=== PATIENT | male | born 1950 | race Caucasian/White ===

== ENCOUNTER 2017-04-23 18:17 | Observation (INO) | payer OTHER ==
[2017-04-23] MEDS ORDERED: Metoprolol Tartrate TAB* 25 MG PO ONE (18:40)
[2017-04-23] MEDS ORDERED: Metoprolol Tartrate IV* 1 MG/ML 5 ML VIAL IV ONE (18:40)
[2017-04-23] MEDS: NS 0.9% 1000 ML* 2,000 ML IV ONE (18:52)
[2017-04-23 19:03] LABS: Hematocrit 41 % (42-52); Hemoglobin 14.2 g/dl (14.0-18.0); Mean Corpuscular HGB Conc 35 g/dl (31-36); Mean Corpuscular Hemoglobin 31 pg (27-31); Mean Corpuscular Volume 91 fL (80-94); Mean Platelet Volume 7 um3 (7.4-10.4); Red Blood Count 4.53 10^6/ul (4.0-5.4); Red Cell Distribution Width 13 % (10.5-15); White Blood Count 6.2 10^3/ul (3.5-10.8)
[2017-04-23 19:09] LABS: Urine Bacteria Absent (Absent); Urine Bilirubin Negative (Negative); Urine Glucose Negative (Negative); Urine Nitrite Negative (Negative)
--- NOTE | 2017-04-23 19:25 | RAD ---
HISTORY: Tachycardia COMPARISONS: June 13, 2016 VIEWS:1: Single frontal portable view of the chest at 7:05 PM FINDINGS: LINES AND TUBES: None. CARDIOMEDIASTINAL SILHOUETTE: The cardiomediastinal silhouette is normal for portable technique. PLEURA: The costophrenic angles are sharp. No pleural abnormalities are noted. LUNG PARENCHYMA: There is hyperinflation. There is minimal patchy alveolar opacification of the left lung base ABDOMEN: The upper abdomen is clear. There is no subphrenic gas. BONES AND SOFT TISSUES: No bone or soft tissue abnormalities are noted. IMPRESSION: COPD WITH MINIMAL LEFT BASILAR ATELECTASIS VERSUS EARLY CONSOLIDATION
[2017-04-23 19:36] LABS: ALT 13 U/L (7-52); AST 14 U/L (13-39); Albumin 4.6 g/dL (3.2-5.2); Alkaline Phosphatase 57 U/L (34-104); Anion Gap 6 mmol/L (2-11); BUN/Creatinine Ratio 21.6 (8-20); Blood Urea Nitrogen 19 mg/dL (6-24); C Reactive Protein < 1.00 mg/L (< 5.00); CO2 Carbon Dioxide 28 mmol/L (22-32); Calcium 9.7 mg/dL (8.6-10.3); Chloride 103 mmol/L (101-111); Creatine Kinase 88 U/L (10-223); EGFR African American 111.8 (>60); EGFR Non-African American 86.9 (>60); Globulin 2.3 g/dL (2-4); Glucose 107 mg/dL (70-100); Lipase 52 U/L (11.0-82.0); Magnesium 2.4 mg/dL (1.9-2.7); Potassium 3.6 mmol/L (3.5-5.0); Sodium 137 mmol/L (133-145); Total Protein 6.9 g/dL (6.4-8.9)
[2017-04-23 19:49] LABS: TSH (Thyroid Stimulating Horm) 1.78 mcIU/mL (0.34-5.60)
[2017-04-23] MEDS ORDERED: Iohexol 350* (CONTRAST) 500 ML MDV IV ONE (20:36)
--- NOTE | 2017-04-23 21:04 | RAD ---
HISTORY: Tachycardia, positive d-dimer COMPARISONS: None TECHNIQUE: Multiple contiguous axial CT scans of the chest were obtained after the administration of nonionic intravenous contrast, timed to the pulmonary arterial phase of contrast enhancement.. Coronal and sagittal multiplanar reformations are also submitted for review. FINDINGS: NECK AND THYROID: The lower neck and thyroid are unremarkable. CHEST WALL: There is no lower cervical, axillary, or supraclavicular lymphadenopathy by size criteria. HEART AND PERICARDIUM: The heart is unremarkable. AORTA AND PULMONARY VASCULATURE: There are multiple pulmonary arterial filling defects within the segmental branches to the upper and lower lobes bilaterally. The aorta is not evaluated secondary to normal. MEDIASTINUM: There is no mediastinal lymphadenopathy by size criteria. NILES: There is no hilar lymphadenopathy by size criteria. AIRWAY AND ESOPHAGUS: There is minimal dependent atelectasis of the lungs bilaterally. LUNG PARENCHYMA: The lungs are clear. PLEURA: No pleural abnormalities are noted. UPPER ABDOMEN: The upper abdomen is unremarkable. BONES AND SOFT TISSUES: Degenerative changes are noted of the spine OTHER: None. IMPRESSION: SEGMENTAL PULMONARY EMBOLI TO THE UPPER AND LOWER LOBES BILATERALLY. PRELIMINARY FINDINGS WERE DISCUSSED WITH DR. REYNAGA AT APPROXIMATELY 9:00 PM ON APRIL 23, 2017.
--- NOTE | 2017-04-23 21:36 | ED ---
Mike Shah Rebecca, scribed for Carroll Serrano MD on 04/23/17 at 1844 . Palpitations / Dysrhythmia - HPI Summary HPI Summary: Pt is a 66 y/o M BIBA who presents to ED referred from [facility] c /o palpitations and for evaluation of A flutter. At 1630 today the pt was waiting for the bus when he began experiencing a "strange sensation" in the right chest, described as feeling like "a series of PVCs." Reports this episode lasted longer then when he feels just one PVC intermittently. He then went to [facility] who diagnosed him with A flutter and referred him to [facility] ED. Pt believes palpitations may be aggravated by "gas pockets in the stomach." At this time, pt denies LE pain, CP, SOB, lightheadedness. Prior simliar episodes in December and last week both of which he attributed to dehydration that were resolved by water. - History of Current Complaint Chief Complaint: EDDysrhythmPalp Hx Obtained From: Patient Onset/Duration: Sudden Onset - 163, Still Present Timing: Intermittent Episodes Lasting: Character: Irregular - "series of PVCs" Alleviating: Nothing Associated Signs & Symptoms: Negative Related History: Similar Episode/Dx as - In December and last week - Allergy/Home Medications Allergies/Adverse Reactions: Allergies Allergy/AdvReac Type Severity Reaction Status Date / Time Alprazolam Allergy Nausea Verified 06/19/16 09:35 Clarithromycin [From Biaxin] Allergy Insomnia Verified 06/19/16 09:35 Sertraline [From Zoloft] Allergy Nausea Verified 06/19/16 09:35 Trazodone Allergy Nausea Verified 06/19/16 09:35 PMH/Surg Hx/FS Hx/Imm Hx Endocrine/Hematology History: Denies: Hx Diabetes Cardiovascular History: Reports: Hx Hypercholesterolemia, Other Cardiovascular Problems/Disorders - STATES OCCASIONAL PVCs, SAYS NOT TO WORRY Denies: Hx Hypertension, Hx Pacemaker/ICD GI History: Denies: Other GI Disorders History: Reports: Other Problems/Disorders - HX microhematuria Denies: Hx Dialysis, Hx Renal Disease Sensory History: Reports: Hx Cataracts - RIGHT EYE, Hx Contacts or Glasses - GLASSES Denies: Hx Hearing Aid Opthamlomology History: Reports: Hx Cataracts - RIGHT EYE, Hx Contacts or Glasses - GLASSES Neurological History: Reports: Other Neuro Impairments/Disorders - OCC INSOMNIA Psychiatric History: Reports: Hx Anxiety - ON DAILY MEDS Denies: Hx Eating Disorder, Hx Panic Disorder, Hx of Violent Episodes Against Others - Surgical History Surgery Procedure, Year, and Place: TONSILLECTOMY A CHILD;. 10/2014 VITRECTOMY LEFT SYR;. 07/2015 CATARACT LEFT EYE- (StabilEyes Capsular Tension Ring made of ultraviolet light absorbing polymethylmethacrylate- SAFE) [facility]. 01/2016 GALLBLADDER [facility] Hx Anesthesia Reactions: No Infectious Disease History: No Infectious Disease History: Denies: Traveled Outside the [place] in Last 30 Days - Family History Known Family History: Positive: Cardiac Disease, Other Family History: Anxiety, IBS, gastroenteritis issues - mother - Social History Alcohol Use: None Hx Substance Use: No Substance Use Type: Reports: None Hx Tobacco Use: No Smoking Status (MU): Never Smoked Tobacco Have You Smoked in the Last Year: No Review of Systems Positive: Palpitations - "series of PVCs". Negative: Chest Pain Negative: Shortness Of Breath Positive: Other - Negative: LE pain Neurological: Other - NEGATIVE: lightheadedness All Other Systems Reviewed And Are Negative: Yes Physical Exam - Summary Physical Exam Summary: General: well-appearing, no pain distress Skin: warm, color reflects adequate perfusion, dry Head: normal Eyes: EOMI, LUIS E ENT: normal Neck: supple, nontender Respiratory: CTA, breath sounds present Cardiovascular: tachycardic, IRR Abdomen: soft, nontender Bowel: present Musculoskeletal: normal, strength/ROM intact Neurological: normal, sensory/motor intact, A&O x3 Psychological: affect/mood appropriate Triage Information Reviewed: Yes Vital Signs On Initial Exam: Initial Vitals Temp Pulse Resp BP Pulse Ox 98.5 F 93 18 126/77 98 04/23/17 18:22 04/23/17 18:22 04/23/17 18:22 04/23/17 18:22 04/23/17 18:22 Vital Signs Reviewed: Yes - [place] Coma Scale Coma Scale Total: 15 Diagnostics - Vital Signs Vital Signs Temp Pulse Resp BP Pulse Ox 04/23/17 18:23 26 126/77 04/23/17 18:22 98.5 F 93 18 126/77 98 - Laboratory Lab Results: Lab Results 04/23/17 04/23/17 04/23/17 Range/Units 18:26 18:26 18:26 WBC 6.2 (3.5-10.8) 10^3/ul RBC 4.53 (4.0-5.4) 10^6/ul Hgb 14.2 (14.0-18.0) g/dl Hct 41 L (42-52) % MCV 91 (80-94) fL MCH 31 (27-31) pg MCHC 35 (31-36) g/dl RDW 13 (10.5-15) % Plt Count 182 (150-450) 10^3/ul MPV 7 L (7.4-10.4) um3 Neut % (Auto) 59.4 (38-83) % Lymph % (Auto) 26.8 (25-47) % [place] % (Auto) 12.2 H (1-9) % Eos % (Auto) 1.2 (0-6) % Baso % (Auto) 0.4 (0-2) % Absolute Neuts (auto) 3.7 (1.5-7.7) 10^3/ul Absolute Lymphs (auto) 1.7 (1.0-4.8) 10^3/ul Absolute Monos (auto) 0.8 (0-0.8) 10^3/ul Absolute Eos (auto) 0.1 (0-0.6) 10^3/ul Absolute Basos (auto) 0 (0-0.2) 10^3/ul Absolute Nucleated RBC 0 10^3/ul Nucleated RBC % 0.1 INR (Anticoag Therapy) 1.00 (0.89-1.11) APTT 23.3 L (26.0-36.3) seconds D-Dimer, Quantitative 739 H (Less Than 230) ng/mL Sodium 137 (133-145) mmol/L Potassium 3.6 (3.5-5.0) mmol/L Chloride 103 (101-111) mmol/L Carbon Dioxide 28 (22-32) mmol/L Anion Gap 6 (2-11) mmol/L BUN 19 (6-24) mg/dL Creatinine 0.88 (0.67-1.17) mg/dL Est GFR ( Amer) 111.8 (>60) Est GFR (Non-Af Amer) 86.9 (>60) BUN/Creatinine Ratio 21.6 H (8-20) Glucose 107 H (70-100) mg/dL Lactic Acid (0.5-2.0) mmol/L Calcium 9.7 (8.6-10.3) mg/dL Magnesium 2.4 (1.9-2.7) mg/dL Total Bilirubin 0.70 (0.2-1.0) mg/dL AST 14 (13-39) U/L ALT 13 (7-52) U/L Alkaline Phosphatase 57 (34-104) U/L Total Creatine Kinase 88 (10-223) U/L CK-MB (CK-2) 1.7 (0.6-6.3) ng/mL Troponin I 0.00 (<0.04) ng/mL C-Reactive Protein < 1.00 (< 5.00) mg/L B-Natriuretic Peptide ( - 100) pg/mL Total Protein 6.9 (6.4-8.9) g/dL Albumin 4.6 (3.2-5.2) g/dL Globulin 2.3 (2-4) g/dL Albumin/Globulin Ratio 2.0 (1-3) Lipase 52 (11.0-82.0) U/L TSH 1.78 (0.34-5.60) mcIU/mL Urine Color Urine Appearance Urine pH (5-9) Ur Specific [place] (1.010-1.030) Urine Protein (Negative) Urine Ketones (Negative) Urine Blood (Negative) Urine Nitrate (Negative) Urine Bilirubin (Negative) Urine Urobilinogen (Negative) Ur Leukocyte Esterase (Negative) Urine WBC (Auto) (Absent) Urine RBC (Auto) (Absent) Urine Bacteria (Absent) Urine Glucose (Negative) 04/23/17 04/23/17 04/23/17 Range/Units 18:26 18:26 18:30 WBC (3.5-10.8) 10^3/ul RBC (4.0-5.4) 10^6/ul Hgb (14.0-18.0) g/dl Hct (42-52) % MCV (80-94) fL MCH (27-31) pg MCHC (31-36) g/dl RDW (10.5-15) % Plt Count (150-450) 10^3/ul MPV (7.4-10.4) um3 Neut % (Auto) (38-83) % Lymph % (Auto) (25-47) % [place] % (Auto) (1-9) % Eos % (Auto) (0-6) % Baso % (Auto) (0-2) % Absolute Neuts (auto) (1.5-7.7) 10^3/ul Absolute Lymphs (auto) (1.0-4.8) 10^3/ul Absolute Monos (auto) (0-0.8) 10^3/ul Absolute Eos (auto) (0-0.6) 10^3/ul Absolute Basos (auto) (0-0.2) 10^3/ul Absolute Nucleated RBC 10^3/ul Nucleated RBC % INR (Anticoag Therapy) (0.89-1.11) APTT (26.0-36.3) seconds D-Dimer, Quantitative (Less Than 230) ng/mL Sodium (133-145) mmol/L Potassium (3.5-5.0) mmol/L Chloride (101-111) mmol/L Carbon Dioxide (22-32) mmol/L Anion Gap (2-11) mmol/L BUN (6-24) mg/dL Creatinine (0.67-1.17) mg/dL Est GFR ( Amer) (>60) Est GFR (Non-Af Amer) (>60) BUN/Creatinine Ratio (8-20) Glucose (70-100) mg/dL Lactic Acid 0.9 (0.5-2.0) mmol/L Calcium (8.6-10.3) mg/dL Magnesium (1.9-2.7) mg/dL Total Bilirubin (0.2-1.0) mg/dL AST (13-39) U/L ALT (7-52) U/L Alkaline Phosphatase (34-104) U/L Total Creatine Kinase (10-223) U/L CK-MB (CK-2) (0.6-6.3) ng/mL Troponin I (<0.04) ng/mL C-Reactive Protein (< 5.00) mg/L B-Natriuretic Peptide 90 ( - 100) pg/mL Total Protein (6.4-8.9) g/dL Albumin (3.2-5.2) g/dL Globulin (2-4) g/dL Albumin/Globulin Ratio (1-3) Lipase (11.0-82.0) U/L TSH (0.34-5.60) mcIU/mL Urine Color Colorless Urine Appearance Clear Urine pH 7.0 (5-9) Ur Specific [place] 1.003 L (1.010-1.030) Urine Protein Negative (Negative) Urine Ketones Negative (Negative) Urine Blood 1+ H (Negative) Urine Nitrate Negative (Negative) Urine Bilirubin Negative (Negative) Urine Urobilinogen Negative (Negative) Ur Leukocyte Esterase Negative (Negative) Urine WBC (Auto) Absent (Absent) Urine RBC (Auto) Trace(0-2/hpf) (Absent) Urine Bacteria Absent (Absent) Urine Glucose Negative (Negative) Result Diagrams: 04/23/17 18:26 04/23/17 18:26 Lab Statement: Any lab studies that have been ordered have been reviewed, and results considered in the medical decision making process. - Radiology CXR Xray Interpretation: Positive (See Comments) - COPD WITH MINIMAL LEFT BASILAR ATELECTASIS VERSUS EARLY CONSOLIDATION. ED physician reviewed this radiology report and agrees. Radiology Interpretation Completed By: Radiologist - CT CTA Chest CT Interpretation Completed By: Radiologist - Pending radiology report. See [employer] for results. - EKG 1824 Cardiac Rate: NL - 81 bpm EKG Rhythm: Atrial Flutter EKG Interpretation: Minimal ST elevations in the anterior leads, ST segment is concave up 2002 Cardiac Rate: Bradycardia - 44 bpm EKG Rhythm: Sinus Bradycardia Ectopy: None EKG Interpretation: Minimal ST elevations in the anterior leads, ST segment is concave up - Additional Comments Diagnostic Additional Comments: Venous Doppler Study - pending results, see [employer] Re-Evaluation - Re-Evaluation First Eval Re-Evaluation Time: 20:23 Comment: Pt is doing well and was able to ambulate to the bathroom. Discussed results. Course/Dx - Course Assessment/Plan: Pt is a 66 y/o M BIBA who presents to ED referred from [facility] c/o palpitations and for evaluation of A flutter. At 1630 today the pt was waiting for the bus when he began experiencing a "strange sensation" in the right chest, described as feeling like "a series of PVCs." Reports this episode lasted longer then when he feels just one PVC intermittently. He then went to [facility] who diagnosed him with A flutter and referred him to [facility] ED. Pt believes palpitations may be aggravated by "gas pockets in the stomach." At this time, pt denies LE pain, CP, SOB, lightheadedness. Prior simliar episodes in December and last week both of which he attributed to dehydration that were resolved by water. CXR reveals COPD WITH MINIMAL LEFT BASILAR ATELECTASIS VERSUS EARLY CONSOLIDATION. The first EKG reveals A flutter with Minimal ST elevations in the anterior leads, ST segment is concave up. The repeat EKG reveals sinus rhythm with Minimal ST elevations in the anterior leads , ST segment is concave up. D-Dimer of 739, APTT 23.3. In the ED course, the pt was administered Lopressor IV and PO and fluids IV. Elevated BP noted and advised to f/u with PCP. ADMIT HOSPITALIST STABLE FOR PES AND ATRIAL FLUTTER. CRITICAL CARE TIME LESS THAN 30 MINUTES. - Diagnoses Provider Diagnoses: Pulmonary emboli, Atrial flutter - Physician Notifications Discussed Care Of Patient With: Sharon Bird Time Discussed With Above Provider: 18:36 Instructed by Provider To: Other - She said that if his labs return normal, his rate is controlled and he feels well that potentially he could be tretaed as an outpatient. Discharge - Discharge Plan Condition: Stable Disposition: ADMITTED TO [facility] Referrals: Isreal Rascon MD [Primary Care Provider] - The documentation as recorded by the Mike perkins Rebecca accurately reflects the service I personally performed and the decisions made by me, Carroll Serrano MD.
[2017-04-23] MEDS ORDERED: Acetaminophen TAB* 325 MG PO PRN (21:38)
[2017-04-23] MEDS ORDERED: Ondansetron INJ* 2 MG/ML VIAL IV PRN (21:38)
[2017-04-23] MEDS: Rivaroxaban TAB(*) 15 MG PO SCH (22:52)
[2017-04-23] MEDS ORDERED: PARoxetine HCL TAB* 10 MG PO SCH ×2 (22:53→23:40)
--- NOTE | 2017-04-23 23:48 | HP ---
CC: Dr. Rascon * HISTORY AND PHYSICAL: DATE OF ADMISSION: 04/23/17 PRIMARY CARE PROVIDER: Dr. Rascon. ATTENDING PHYSICIAN WHILE IN THE HOSPITAL: Dr. Manuel Hawkins * (report dictated by Pato Juárez NP). CHIEF COMPLAINT: Palpitations. HISTORY OF PRESENT ILLNESS: Mr. Benitez is a 66-year-old male patient who was on his way, was going home, getting on the bus when he noticed that he started having some palpitations in his chest. 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 He went to the [facility] there and he actually had checked his pulse before going in and he noticed that it was irregular. He was concerned because of the irregularity. He went to [place]. They evaluated him and sure enough he had an irregular heart beat and they sent him into the [facility] to be evaluated and on evaluation here it was noted that he appeared to be in atrial flutter. Whilst on the workup, it was also noted that he had a pulmonary embolism. CTA was ordered because D-dimer was elevated. The patient denied any chest pain or any shortness of breath. He says he has not really been having any calf pain but he does state that he recently over the weekend went down to [place], it was a 12-hour trip there and 12-hour trip back. He says he did stop. There has been no recent trauma to the lower extremities and no recent surgeries. He is evaluated here. Because of the new atrial flutter and the fact that he had a PE , hospitalist service was asked to evaluate for admission. PAST MEDICAL HISTORY: Significant for; 1. Anxiety. 2. IBS. PAST SURGICAL HISTORY: He has had; 1. Cataracts. 2. Tonsillectomy. 3. Laparoscopic cholecystectomy. HOME MEDICATIONS: According to the patient include Paxil 5 mg p.o. q.h.s. ALLERGIES TO MEDICATIONS: Include BIAXIN, ZOLOFT, XANAX, and TRAZODONE. FAMILY HISTORY: His mother had a history of aortic regurg and AFib. The father 's history is unknown. SOCIAL HISTORY: He does not drink. He does not smoke. 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 His surrogate decision maker is his sister. REVIEW OF SYSTEMS: There is no documented fever. He denied having any significant weight change. No double vision. No ear discharge. He denied having any rhinorrhea. There was no sore throat. No thyroid enlargement. He denies having any chest pain. No orthopnea, no nocturnal dyspnea. There was no abdominal pain. There was no nausea, no vomiting. No dysuria, no frequency. There was no seizure, no loss of consciousness. No pruritus and no skin ulceration. Review of 14 systems completed, all others negative. PHYSICAL EXAMINATION GENERAL: At this time, Mr. Benitez is a 66-year-old male patient. He appears to be well nourished, well developed. He does not appear to be in any acute distress. He is sitting in the ER stretcher. He is awake and he is alert. He is oriented x3. VITAL SIGNS: Reveal blood pressure 109/62, pulse of 47, respirations 16, O2 sat 99%, temperature 98.5. HEENT: Head is atraumatic, normocephalic. Eyes: EOMs are intact. Sclerae anicteric and not pale. Throat: Oral mucosa appears to be moist. No oropharyngeal erythema. NECK: Supple. LUNGS: Clear to auscultation bilaterally. No wheezes, rales, or rhonchi. HEART: Sounds S1 and S2. Regular rate and rhythm. No murmurs, rubs, or gallops. ABDOMEN: Soft, flat, nontender. Bowel sounds present. EXTREMITIES: Pulses 2+ throughout. He is able to move all 4 extremities with 5 /5 strength. NEUROLOGIC: The patient is awake. He is alert. He is oriented x3. His tongue is midline. I&C Tech is equal. No gross focal deficits. SKIN: Intact. DIAGNOSTIC STUDIES/LAB DATA: Today revealed a WBC of 6.2, RBC of 4.53, hemoglobin of 14.2, hematocrit of 41, platelet count of 182,000. INR was 1, PTT 23.3. D- dimer was 739. The sodium was 135, potassium of 3.6, chloride of 103, bicarb 28, BUN 19, creatinine 0.88, glucose 107, lactate 0.8, calcium 9.7, mag 2.4. Total bili is 0.7, AST 14, ALT 13, alk phos 57, CK 88, CK-MB 1.7. Troponin 0. CRP less than 1. BNP of 90. TSH 1.78. Urine was obtained, it was negative. He did have a chest thorax CTA obtained today which revealed segmental pulmonary emboli to the upper and lower lobes bilaterally. He had a chest x-ray obtained today which revealed COPD with minimal left basilar atelectasis versus early consolidation. He did have an EKG. Initially, the EKG showed atrial flutter with a rate of 81. No ST elevation or T wave inversions. At 1999, he converted to a sinus bradycardia with the rate of 44. No ST elevations or T inversions noted. It is reviewed with an EKG from 2012. It appears to be similar and the rate was 58 at that point. Old medical records were reviewed. ASSESSMENT AND PLAN: Mr. Benitez is a 66-year-old male patient, coming into the hospital today with complaints of palpitations on further evaluation and workup, found to be a new onset atrial flutter, in addition to this also found to have bilateral pulmonary emboli. He will be admitted under observation status for: 1. Bilateral pulmonary embolism. The patient seemed to be tolerating this well. He is not having any chest pain. He is not hypoxic. He is not short of breath. I plan to get an echo to make sure that there is no RV strain and start him on Xarelto. Monitor him on telemetry overnight and reevaluate him in the morning. I will again start Xarelto 15 mg p.o. b.i.d. We will continue to monitor. I suspect he probably had a provoked deep vein thrombosis which did travel to his lungs from the recent car trip and he can follow with his primary. 2. Atrial flutter. It is probably being brought on by the pulmonary embolism. He is in sinus rhythm now. We will continue to monitor him. They did give him a beta- tracy here in the emergency room, but his resting heart rate is 40 , so I do not think I am going to continue this. We will monitor him. If it becomes an issue, we may need to consider consulting Cardiology. 3. Irritable bowel syndrome. Continue supportive care. 4. History of anxiety. Continue with his Paxil. 5. DVT prophylaxis. He is on therapeutic Xarelto. 6. Fluids, electrolytes, and nutrition. He can have a regular diet. 7. Code status. Full code. TIME SPENT: On the admission was approximately 60 minutes, greater than half the time was spent [id number] with the patient obtaining my history and physical; the other half of the time was spent going over the plan of care with the patient and implementing the plan of care. I did discuss the plan of care with my attending, Dr. Hawkins; he is in agreement. PATO JUÁREZ NP [id number]/[facility] #: [id number] [place]
[2017-04-24 05:54] LABS: Hematocrit 37 % (42-52); Hemoglobin 12.7 g/dl (14.0-18.0); Mean Corpuscular HGB Conc 35 g/dl (31-36); Mean Corpuscular Hemoglobin 31 pg (27-31); Mean Corpuscular Volume 91 fL (80-94); Mean Platelet Volume 7 um3 (7.4-10.4); Red Blood Count 4.05 10^6/ul (4.0-5.4); Red Cell Distribution Width 13 % (10.5-15); White Blood Count 4.2 10^3/ul (3.5-10.8)
[2017-04-24 06:10] LABS: BUN/Creatinine Ratio 18.3 (8-20); Calcium 8.7 mg/dL (8.6-10.3); EGFR African American 143.2 (>60); EGFR Non-African American 111.3 (>60); Potassium 3.8 mmol/L (3.5-5.0)
--- NOTE | 2017-04-24 07:22 | RAD ---
INDICATION: Positive d-dimer. COMPARISON: There are no prior studies available for comparison. TECHNIQUE: Multiple real-time, color flow and Doppler tracings of both lower extremities were obtained. FINDINGS: The common femoral, femoral, profunda femoral and popliteal veins all demonstrate normal compressibility, augmentation with compression and phasic response with respiration. There is venous reflux present within the mid and distal right femoral vein. The posterior tibial and peroneal veins demonstrate normal compressibility and augmentation with compression. There is a bilobed Moore's cyst present in the left popliteal fossa measuring 3.1 x 0.8 x 1.5 cm in size. IMPRESSION: 1. NO EVIDENCE FOR DEEP VENOUS THROMBOSIS. 2. MOORE CYST IN THE LEFT POPLITEAL FOSSA.
[2017-04-24] MEDS ORDERED: PARoxetine HCL TAB* 10 MG PO SCH (09:00)
[2017-04-24] MEDS: Rivaroxaban TAB(*) 15 MG PO SCH (10:07)
--- NOTE | 2017-04-24 10:14 | ECHO ---
Patient: CHELSEA SOLIS [facility] Rec#: [id number] : 1950 Date: 04/24/2017 Age: 66y Height: 179.07 cm / 70.5 in Weight: 80.29 kg / 177.0 lbs Sex: M BSA: 1.99 Room#: 440 Admit Date#: 04/23/2017 Type: Inpatient Referring: Pato Juárez NP Reading: Sterling Mason DO Transcribing Machine Mechanic: Suzi Ames RDCS CC: Isreal Rascon MD Transthoracic Echocardiogram Indication: Pulmonary Emboli BP: 112/61 HR: 44 Rhythm: Bradycardia Findings History: Anxiety, IBS, COPD. Technical Comments: The study quality is fair. The study is technically limited due to the patient's history of COPD. Completed at 0850. Left Ventricle: The left ventricular chamber size is normal. There is no left ventricular hypertrophy. Global left ventricular wall motion and contractility are within normal limits. There is normal left ventricular systolic function. The estimated ejection fraction is 55-60%. Normal left ventricular diastolic filling is observed. Left Atrium: The left atrium is mildly dilated. Right Ventricle: The right ventricle is mildly dilated. The right ventricular global systolic function is mildly reduced. Right Atrium: The right atrium is mildly dilated. Aortic Valve: The aortic valve is trileaflet. The aortic valve leaflets are mildly thickened. There is no evidence of aortic regurgitation. There is no evidence of aortic stenosis. Mitral Valve: The mitral valve leaflets appear normal. There is mild mitral regurgitation. There is no evidence of mitral stenosis. Tricuspid Valve: The tricuspid valve leaflets are normal. There is mild tricuspid regurgitation. No pulmonary hypertension is noted. There is no tricuspid stenosis. Pulmonic Valve: The pulmonic valve appears normal. There is no evidence of pulmonic regurgitation. There is no pulmonic stenosis. Pericardium: There is no significant pericardial effusion. Aorta: There is borderline dilatation of the ascending aorta. There is no dilatation of the aortic arch. The aortic root is normal in size. Pulmonary Artery: The main pulmonary artery is not well visualized. Venous: The inferior vena cava is dilated. There is an approximate 50% respiratory change in the inferior vena cava dimension. Conclusions The left ventricular chamber size is normal. There is normal left ventricular systolic function. The estimated ejection fraction is 55-60%. The left atrium is mildly dilated. The right ventricle is mildly dilated. The right ventricular global systolic function is mildly reduced. The right atrium is mildly dilated. There is mild tricuspid regurgitation. No pulmonary hypertension is noted. No prior studies available for comparison at time of interpretation. Measurements Name Value Normal Range RVIDd (AP) 2D 3.3 cm (0.9 - 2.6) RVDdMajor (2D) 4.8 cm (2.2 - 4.4) RVAW (2D) 0.6 cm (0.2 - 0.5) RAd ISD 4CH 5.5 cm (3.4 - 4.9) IVSd (2D) 0.9 cm (0.6 - 1) LVPWd (2D) 0.9 cm (0.6 - 1) LVIDd (2D) 5 cm (3.6 - 5.4) LVIDs (2D) 3.6 cm - LV FS (2D) 29 % (25 - 45) Aortic Annulus 2.3 cm (1.4 - 2.6) Ao root diameter (2D) 3.5 cm (2.1 - 3.5) Ascending Ao 3.4 cm (2.1 - 3.4) Aortic arch 2.6 cm (1.8 - 3.4) LA dimension (AP) 2D 3.8 cm (2.3 - 3.8) LAd ISD 4CH 5.8 cm (2.9 - 5.3) LA ISD 4CH W 4.2 cm (2.5 - 4.5) Name Value Normal Range LA ESV SP 4CH (A/L) 75 ml - LA ESV BP (A/L) 90 ml - LA ESV BP (A/L) index 47.56 ml/m2 - LA ESV SP 4CH (MOD) 70 ml - LA ESV SP 2CH (MOD) 106 ml - Name Value Normal Range MV E-wave Vmax 0.71 m/sec - MV deceleration time 356.7 msec - MV A-wave Vmax 0.31 m/sec - MV E:A ratio 2.3 ratio - LV septal e' Vmax 0.1 m/sec - LV lateral e' Vmax 0.11 m/sec - LV E:e' septal ratio 7.1 ratio - LV E:e' lateral ratio 6.45 ratio - Name Value Normal Range AV Vmax 1.13 m/sec - AV VTI 28.8 cm - AV peak gradient 5.11 mmHg - AV mean gradient 3.03 mmHg - LVOT Vmax 0.86 m/sec - LVOT VTI 18.94 cm - LVOT peak gradient 2.96 mmHg - LVOT mean gradient 1.68 mmHg - ILAN Vmax 0.65 m/sec - Name Value Normal Range TR Vmax 2.3 m/sec - TR peak gradient 21 mmHg - RVSP 29 mmHg - IVC diameter 2.2 cm - Name Value Normal Range PV Vmax 0.71 m/sec - PV peak gradient 2.01 mmHg -
[2017-04-24 11:31] VITALS: BP 105/56
--- NOTE | 2017-04-28 05:31 | DS ---
cc: Dr. Isreal Rascon* DISCHARGE SUMMARY: DATE OF ADMISSION: 04/23/17 DATE OF DISCHARGE: 04/24/17 DISCHARGE DIAGNOSES: 1. Atrial flutter. 2. Pulmonary emboli. 3. History of anxiety. 4. History of irritable bowel syndrome. 5. Moore's cyst left popliteal fossa HISTORY OF PRESENT ILLNESS: Suleiman Benitez is a 66-year-old man admitted with palpitations, found to have pulmonary emboli. Please see the dictated admission note for details of the present illness, past medical history, family history, social and personal history, review of systems and physical examination. DIAGNOSTIC STUDIES/LAB DATA: CBC on admission WBC 6.2, H and H 14.2/41, MCV 91 , PLT 182K. CBC on 04/24/17, WBC 4.2, H and H 12.7/37, MCV 91, PLT 148K. INR 1, PTT 23.3, D-dimer elevated at 739. Chemistries on 04/23/17: Sodium 137, potassium 3.6, chloride 103, CO2 28, BUN/ creatinine 19/0.88, glucose 107, lactic acid 0.9 (normal), rest of the comprehensive metabolic panel was normal. Troponin was normal at 0. C- reactive protein was normal at less than 1. Lipase was normal. B12 was normal at 324. TSH was normal at 1.78. CK-MB was normal. BMP on 04/24/17 was within normal limits. Urinalysis: Color was clear, specific gravity 1.003, pH 7, dipstick is positive for 1+ blood. Micro shows only trace rbc's, 0 to 2 per high-power field. Lyme disease serology was negative. Imaging: Chest x-ray on 04/23/17 showed COPD with minimal left basilar atelectasis versus early consolidation. CTA of the chest on 04/23/17 showed segmental pulmonary emboli to the upper and lower lobes bilaterally. Venous Doppler study on 04/23/17 was negative for DVT. There was a Moore's cyst noted in the left popliteal fossa. EKG on 04/23/17 showed atrial flutter with varied AV block, rhythm new, otherwise no significant changes since the previous record of 01/21/13. EKG on 04/23/17 showed sinus bradycardia, rate less than 60, minimal ST elevation in anterior leads, otherwise normal. No significant changes from the EKG 2 hours earlier except for the change in rhythm. Transthoracic echocardiogram on 04/24/17 showed normal LV function, mild left atrial dilatation, mild right ventricular dilatation, mild reduction in right ventricular global systolic function, slight dilatation of the right atrium, mild tricuspid regurgitation, no pulmonary hypertension was noted. Electrocardiogram on 04/23/17 showed sinus bradycardia, minimal ST-elevation in anterior leads, otherwise normal, no change. HOSPITAL COURSE: The patient was admitted with complaints of palpitations. He was in atrial flutter, reverted to sinus rhythm spontaneously. He was found to have bilateral pulmonary emboli. He was started on Xarelto. He was monitored on telemetry overnight and remained in sinus rhythm. Echocardiogram was accomplished as noted above. It was felt that he likely had DVT related to a long car trip, which he has taken in the previous few days in order to see the [employer] eclipse. It was felt that the atrial flutter has likely been trigged by the pulmonary emboli, although he did give history of having had similar symptoms that were shorter lived prior to this car trip. He was continued on his usual dose of Paxil for anxiety. He was maintained a full code. When he was seen on 04/24/17, he was feeling quite well. He did report episodes of what appeared to be atrial flutter the previous week and in December lasting about 15 minutes and resolving. His vital signs were blood pressure 104/60, pulse 42, respirations 16, temperature 98.5. His chest was clear. His heart was regular. He had no calf tenderness or edema. He was discharged. DIET: He is to be on a regular diet. ACTIVITY: Usual, he was told not to bike, as he usually does a lot of bike riding. MEDICATIONS: He is to be on: 1. Xarelto 15 mg twice a day for now. 2. Paxil 5 mg once a day. FOLLOW UP: He will follow up with Dr. Rascon in 5 to 7 days. [id number]/[facility] #: [id number] MTDD
== END 2017-04-24 12:20 | disposition home or self-care (01) ==
LOC: ED 18:17 → MEDTELE 21:36
PROVIDERS: ADMIT Hospitalist; ATTEND Internal Medicine Geriatric Medicine
DX: I48.92 Unspecified atrial flutter (principal); I26.99 Other pulmonary embolism without acute cor pulmonale; F41.9 Anxiety disorder, unspecified; J44.9 Chronic obstructive pulmonary disease, unspecified; J98.11 Atelectasis; R31.9 Hematuria, unspecified; I36.1 Nonrheumatic tricuspid (valve) insufficiency; I51.7 Cardiomegaly
CPT/HCPCS: 36415; 71010; 71275; 80048; 80053; 81003; 81015; 82550; 82553; 82607; 83605; 83690; 83735; 83880; 84443; 84484; 85025; 85379; 85610; 85730; 86140; 86618; 93005; 93306; 93970; 94760; 96374; 96375; 99284; A9270-GY; G0378; Q9967

== ENCOUNTER 2017-04-28 04:52 | Emergency (ER) | payer OTHER ==
[2017-04-28 06:40] VITALS: BP 115/68
--- NOTE | 2017-04-28 06:43 | ED ---
Mike Shah Rebecca, scribed for [facility] on 04/28/17 at 0505 . Head Injury - HPI Summary HPI Summary: Pt is a 66 y/o M BIBA who presents to ED s/p head injury. 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 No other injuries. Pt denies any associated pain, ranked pain as 0/10. Pt was put on Xarelto for A flutter and pulmonary embolisms 4 days ago and was advised to be evaluated by the ED if any head injuries occur. - History Of Current Complaint Chief Complaint: EDHeadInjury Stated Complaint: HEAD INJURY Time Seen by Provider: 04/28/17 04:59 Hx Obtained From: Patient Mechanism Of Injury: Blunt Trauma - Head hit wall Onset of Pain: Prior to Arrival Severity Currently: None Pain Intensity: 0 Pain Scale Used: 0-10 Numeric Aggravating Factor(s): Other: - Nothing Alleviating Factor(s): Other: - NOthing Associated Signs And Symptoms: Negative - Allergies/Home Medications Allergies/Adverse Reactions: Allergies Allergy/AdvReac Type Severity Reaction Status Date / Time Alprazolam Allergy Nausea Verified 04/28/17 04:54 Clarithromycin [From Biaxin] Allergy Insomnia Verified 04/28/17 04:54 Sertraline [From Zoloft] Allergy Nausea Verified 04/28/17 04:54 Trazodone Allergy Nausea Verified 04/28/17 04:54 PMH/Surg Hx/FS Hx/Imm Hx Endocrine/Hematology History: Denies: Hx Diabetes Cardiovascular History: Reports: Hx Hypercholesterolemia, Other Cardiovascular Problems/Disorders - STATES OCCASIONAL PVCs, SAYS NOT TO WORRY Denies: Hx Hypertension, Hx Pacemaker/ICD GI History: Reports: Other GI Disorders - gas pockets in stomach History: Reports: Other Problems/Disorders - HX microhematuria Denies: Hx Dialysis, Hx Renal Disease Musculoskeletal History: Reports: Hx Arthritis Sensory History: Reports: Hx Cataracts - RIGHT EYE, Hx Contacts or Glasses Denies: Hx Hearing Aid Opthamlomology History: Reports: Hx Cataracts - RIGHT EYE, Hx Contacts or Glasses Neurological History: Reports: Other Neuro Impairments/Disorders - OCC INSOMNIA Psychiatric History: Reports: Hx Anxiety - ON DAILY MEDS Denies: Hx Eating Disorder, Hx Panic Disorder, Hx of Violent Episodes Against Others - Surgical History Surgery Procedure, Year, and Place: TONSILLECTOMY A CHILD;. 10/2014 VITRECTOMY LEFT SYR;. 07/2015 CATARACT LEFT EYE- (StabilEyes Capsular Tension Ring made of ultraviolet light absorbing polymethylmethacrylate- SAFE) [facility]. 01/2016 GALLBLADDER [facility] Hx Anesthesia Reactions: No Infectious Disease History: No Infectious Disease History: Reports: Hx Shingles Denies: Traveled Outside the [place] in Last 30 Days - Family History Known Family History: Positive: Cardiac Disease, Other Family History: Anxiety, IBS, gastroenteritis issues - mother - Social History Alcohol Use: None Hx Substance Use: No Substance Use Type: Reports: None Hx Tobacco Use: No Smoking Status (MU): Never Smoked Tobacco Have You Smoked in the Last Year: No Review of Systems Negative: Fever Neurological: Other - Presents s/p head injury; NEGATIVE: LOC All Other Systems Reviewed And Are Negative: Yes Physical Exam - Summary Physical Exam Summary: Appearance: Well appearing, no pain distress Skin: warm, dry, reflects adequate perfusion Head/face: abrasion over the right orbit Eyes: EOMI, LUIS E ENT: normal Neck: supple, nontender Respiratory: CTA, breath sounds present Cardiovascular: RRR, pulses symmetrical Abdomen: nontender, soft Bowel: present Musculoskeletal: normal, strength/ROM intact Neuro: normal, sensory motor intact, A&Ox3 GCS: 15 Triage Information Reviewed: Yes Vital Signs On Initial Exam: Initial Vitals Temp Pulse Resp BP Pulse Ox 97.8 F 52 16 116/70 100 04/28/17 04:59 04/28/17 04:59 04/28/17 04:59 04/28/17 04:59 04/28/17 04:59 Vital Signs Reviewed: Yes - [place] Coma Scale Best Eye Response: 4 - Spontaneous Best Motor Response: 6 - Obeys Commands Best Verbal Response: 5 - Oriented Diagnostics - Vital Signs Vital Signs Temp Pulse Resp BP Pulse Ox 04/28/17 04:59 97.8 F 52 16 116/70 100 - Laboratory Lab Statement: Any lab studies that have been ordered have been reviewed, and results considered in the medical decision making process. - CT Brain CT CT Interpretation: No Acute Changes - Normal exam. ED physician reviewed this radiology report and agrees. CT Interpretation Completed By: Radiologist Re-Evaluation - Re-Evaluation First Eval Re-Evaluation Time: 06:21 Comment: Discussed CT results and D/C plan with the pt. Head Injury Course/Dx Assessment/Plan: Pt is a 66 y/o M BIBA who presents to ED s/p head injury. 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 No other injuries. Pt denies any associated pain, ranked pain as 0/10. Pt was put on Xarelto for A flutter and pulmonary embolisms 4 days ago and was advised to be evaluated by the ED if any head injuries occur. Brain CT reveals a normal exam. The pt will be D/C to home with Dx of head injury and a follow up with his PCP. He understands and agrees. - Diagnoses Provider Diagnoses: Head injury Discharge - Discharge Plan Condition: Stable Disposition: HOME Patient Education Materials: Head Injury (ED) Referrals: Isreal Rascon MD [Primary Care Provider] - 3 Days The documentation as recorded by the Mike perkins Rebecca accurately reflects the service I personally performed and the decisions made by , [facility].
--- NOTE | 2017-04-28 08:17 | RAD ---
INDICATION: The patient "bumped head on wall when walking to bathroom in the dark" and takes blood thinners. COMPARISON: Similar CT of the brain January 21, 2013 TECHNIQUE: Contiguous axial sections of the brain were obtained from the skull base to the vertex without contrast. FINDINGS: The ventricles, cisterns and sulci are within normal limits. The garcia-white matter differentiation is adequately maintained and there is no sulcal effacement. No significant focal abnormality or mass effect is present. There is no evidence for intracranial hemorrhage. No significant focal osseous abnormality is present. The visualized portion of the paranasal sinuses and mastoid air cells appear clear. IMPRESSION: Normal CT of the brain.
== END 2017-04-28 06:33 | disposition home or self-care (01) ==
LOC: ED 04:52
DX: S09.90XA Unspecified injury of head, initial encounter (principal); E78.00 Pure hypercholesterolemia, unspecified; F41.9 Anxiety disorder, unspecified; G47.00 Insomnia, unspecified; I48.92 Unspecified atrial flutter; Z79.01 Long term (current) use of anticoagulants
CPT/HCPCS: 70450; 99282

== ENCOUNTER 2017-06-09 11:28 | Emergency (ER) | payer OTHER ==
[2017-06-09 11:37] VITALS: BP 102/70
--- NOTE | 2017-06-09 13:08 | RAD ---
INDICATION: Head versus door with the previous night, now with complaints of unsteadiness. COMPARISON: CT of the brain April 28, 2017 TECHNIQUE: Contiguous axial sections of the brain were obtained from the skull base to the vertex without contrast. FINDINGS: The ventricles, cisterns and sulci are within normal limits. The garcia-white matter differentiation is adequately maintained and there is no sulcal effacement. No significant focal abnormality or mass effect is present. There is no evidence for intracranial hemorrhage. No significant focal osseous abnormality is present. The visualized portion of the paranasal sinuses and mastoid air cells appear clear. IMPRESSION: Normal CT of the brain.
--- NOTE | 2017-06-09 14:47 | UC ---
Head Injury HPI - HPI Summary HPI Summary: HIT TOP OF HEAD YESTERDAY. ON XARELTO. TODAY HAVING MILD HEADACHE AND 'FEELING OUT OF SORTS'. NO LOC. NO BLEEDING. NO LOSS OF MEMORY. NO LOSS OF BALANCE. NO NECK PAIN. - History Of Current Complaint Chief Complaint: UCHeadInjury Stated Complaint: HEAD INJURY Time Seen by Provider: 06/09/17 11:46 Hx Obtained From: Patient Onset/Duration: Sudden Onset, Lasting Hours Severity Currently: Mild Severity Initially: Mild Pain Intensity: 0 Pain Scale Used: 0-10 Numeric Character: Dull Aggravating Factor(s): Nothing Alleviating Factor(s): Nothing Associated Signs And Symptoms: Negative: Confusion, Memory Loss, Seizure, Epistaxis, Dental Malocclusion, Neck Pain, Nausea, Vomiting - Risk Factors SDH Risk Factor: Negative - Allergies/Home Medications Allergies/Adverse Reactions: Allergies Allergy/AdvReac Type Severity Reaction Status Date / Time Alprazolam Allergy Nausea Verified 06/09/17 11:32 Clarithromycin [From Biaxin] Allergy Insomnia Verified 06/09/17 11:32 Sertraline [From Zoloft] Allergy Nausea Verified 06/09/17 11:32 Trazodone Allergy Nausea Verified 06/09/17 11:32 Home Medications: Home Medications Rivaroxaban TAB(*) [Xarelto 20 mg] 20 mg PO DAILY 06/09/17 [History Confirmed ] PMH/Surg Hx/FS Hx/Imm Hx Previously Healthy: Yes - Surgical History Surgical History: None Surgery Procedure, Year, and Place: TONSILLECTOMY A CHILD;. 10/2014 VITRECTOMY LEFT SYR;. 07/2015 CATARACT LEFT EYE- (StabilEyes Capsular Tension Ring made of ultraviolet light absorbing polymethylmethacrylate- SAFE[place] [facility] [place] [facility] [place] - Family History Known Family History: Positive: Cardiac Disease, Other Negative: Blood Disorder Family History: Anxiety, IBS, gastroenteritis issues - mother - Social History Occupation: Employed Full-time Lives: With Family Alcohol Use: None Substance Use Type: None Smoking Status (MU): Never Smoked Tobacco Have You Smoked in the Last Year: No - Immunization History Most Recent Influenza Vaccination: May 2015 Most Recent Tetanus Shot: unknown Most Recent Pneumonia Vaccination: never Review of Systems Constitutional: Negative Skin: Negative Eyes: Negative ENT: Negative Respiratory: Negative Cardiovascular: Negative Gastrointestinal: Negative Genitourinary: Negative Motor: Negative Neurovascular: Negative Musculoskeletal: Negative Neurological: Negative Psychological: Negative Is Patient Immunocompromised?: No All Other Systems Reviewed And Are Negative: Yes Physical Exam Triage Information Reviewed: Yes Appearance: Well-Appearing, No Pain Distress, Well-Nourished Vital Signs: Initial Vital Signs Temp 98 F 06/09/17 11:33 Pulse 61 06/09/17 11:33 Resp 16 06/09/17 11:33 BP 102/70 06/09/17 11:33 Pulse Ox 100 06/09/17 11:33 Vital Signs Reviewed: Yes Eye Exam: Normal ENT Exam: Normal ENT: Positive: Normal ENT inspection, Hearing grossly normal, Pharynx normal, TMs normal Dental Exam: Normal Neck exam: Normal Neck: Positive: Supple, Nontender, No Lymphadenopathy Respiratory Exam: Normal Respiratory: Positive: Chest non-tender, Lungs clear, Normal breath sounds, No respiratory distress, No accessory muscle use Cardiovascular Exam: Normal Cardiovascular: Positive: RRR, No Murmur, Pulses Normal Abdominal Exam: Normal Abdomen Description: Positive: Nontender Musculoskeletal Exam: Normal Neurological Exam: Normal Neurological: Positive: Alert, Muscle Tone Normal, Other: - CN 2-12 INTACT Psychological Exam: Normal Psychological: Positive: Normal Response To Family Skin Exam: Normal Head Injury Course/Dx - Differential Dx/Diagnosis Differential Diagnosis/HQI/PQRI: Concussion Without LOC, Intracranial Bleed Provider Diagnoses: HEAD INJURY; CONTUSION Discharge - Discharge Plan Condition: Stable Disposition: HOME Patient Education Materials: Head Injury (ED) Referrals: Isreal Rascon MD [Primary Care Provider] -
== END 2017-06-09 13:25 | disposition home or self-care (01) ==
LOC: UCEAST 11:28
DX: S09.90XA Unspecified injury of head, initial encounter (principal); W22.8XXA Striking against or struck by other objects, initial encounter; Y92.9 Unspecified place or not applicable; T14.8XXA Other injury of unspecified body region, initial encounter
CPT/HCPCS: 70450; 99211; G0463

== ENCOUNTER 2017-09-18 16:10 | Emergency (ER) | payer OTHER ==
[2017-09-18] MEDS ORDERED: Diltiazem IV* 5 MG/ML 5 ML VIAL (for loading dose/IV Push) (25 MG) IV SLOW PU ONE (16:39)
[2017-09-18] MEDS ORDERED: NS 0.9% 1000 ML* 1,000 ML IV ONE (16:39)
[2017-09-18] MEDS ORDERED: Diltiazem IV VIAL* 125 MG/25 ML VIAL ONE (16:40)
[2017-09-18 17:04] LABS: ABS Basophils 0 10^3/ul (0-0.2); ABS Eosinophils 0 10^3/ul (0-0.6); ABS Lymphocytes 1.1 10^3/ul (1.0-4.8); ABS Monocytes 0.7 10^3/ul (0-0.8); ABS Neutrophils 4.1 10^3/ul (1.5-7.7); ABS Nucleated RBC 0 10^3/ul; Eosinophil % 0.8 % (0-6); Hematocrit 42 % (42-52); Hemoglobin 14.6 g/dl (14.0-18.0); Lymphocyte % 18.4 % (25-47); Mean Corpuscular HGB Conc 34 g/dl (31-36); Mean Corpuscular Hemoglobin 31 pg (27-31); Mean Corpuscular Volume 91 fL (80-94); Mean Platelet Volume 7 um3 (7.4-10.4); Nucleated Red Blood Cells % 0; Platelet Count 202 10^3/ul (150-450); Red Blood Count 4.64 10^6/ul (4.0-5.4); Red Cell Distribution Width 13 % (10.5-15)
--- NOTE | 2017-09-18 17:07 | RAD ---
INDICATION: Palpitations COMPARISON: Chest x-ray April 23, 2017 TECHNIQUE: Single AP portable view of the chest was obtained. FINDINGS: Image quality is compromised due to the relative inferiority of a portable chest x-ray. The heart and mediastinum exhibit normal size and contour. The lungs are grossly clear. There is no evidence of a large pleural effusion. Visualized bones are normal for the patient's age. IMPRESSION: No radiographic evidence for acute cardiopulmonary abnormality on this portable chest x-ray.
[2017-09-18 17:27] LABS: EGFR Non-African American 88.1 (>60)
[2017-09-18] MEDS ORDERED: Diltiazem TAB* 30 MG PO ONE (18:19)
[2017-09-18] MEDS ORDERED: Potassium Chlor TAB* 20 MEQ TAB.ER PO ONE (18:19)
[2017-09-18 18:55] VITALS: BP 109/66
--- NOTE | 2017-09-18 18:55 | ED ---
Tone Shah Julia, scribed for Geno Murillo MD on 09/18/17 at 1647 . Palpitations / Dysrhythmia - HPI Summary HPI Summary: This patient is a 66 year old M presenting to [facility] with a chief complaint of palpitations since 13:45 today. Patient reports feeling rapid heart rate, nervous anxiety, fluttering, mild SOB upon exertion, and occasional swelling in R foot. Patient denies SOB at rest, headache, ear ache, sore throat, fever, neck pain, abdominal pain, back pain, urinary symptoms current edema, or rash. The patient rates the pain 0/10 in severity. Patient has history of atrial flutter episodes, PE, and is currently being seen by Dr. Mason, his crate icer. - History of Current Complaint Chief Complaint: EDDysrhythmPalp Time Seen by Provider: 09/18/17 16:24 Hx Obtained From: Patient Onset/Duration: Sudden Onset, Still Present Character: Fast, Fluttering Aggravating: Exertion Alleviating: Rest Associated Signs & Symptoms: Shortness of Breath - Allergy/Home Medications Allergies/Adverse Reactions: Allergies Allergy/AdvReac Type Severity Reaction Status Date / Time Alprazolam Allergy Nausea Verified 06/09/17 11:32 Clarithromycin [From Biaxin] Allergy Insomnia Verified 06/09/17 11:32 Sertraline [From Zoloft] Allergy Nausea Verified 06/09/17 11:32 Trazodone Allergy Nausea Verified 06/09/17 11:32 PMH/Surg Hx/FS Hx/Imm Hx Endocrine/Hematology History: Denies: Hx Diabetes Cardiovascular History: Reports: Hx Hypercholesterolemia, Other Cardiovascular Problems/Disorders - STATES OCCASIONAL PVCs, SAYS NOT TO WORRY Denies: Hx Hypertension, Hx Pacemaker/ICD Respiratory History: Reports: Hx Pulmonary Embolism GI History: Reports: Other GI Disorders - gas pockets in stomach History: Reports: Other Problems/Disorders - HX microhematuria Denies: Hx Dialysis, Hx Renal Disease Musculoskeletal History: Reports: Hx Arthritis Sensory History: Reports: Hx Cataracts - RIGHT EYE, Hx Contacts or Glasses Denies: Hx Hearing Aid Opthamlomology History: Reports: Hx Cataracts - RIGHT EYE, Hx Contacts or Glasses Neurological History: Reports: Other Neuro Impairments/Disorders - OCC INSOMNIA Psychiatric History: Reports: Hx Anxiety - ON DAILY MEDS Denies: Hx Eating Disorder, Hx Panic Disorder, Hx of Violent Episodes Against Others - Cancer History Cancer Type, Location and Year: pe and atrial flutter - Surgical History Surgery Procedure, Year, and Place: TONSILLECTOMY A CHILD;. 10/2014 VITRECTOMY LEFT SYR;. 07/2015 CATARACT LEFT EYE- (StabilEyes Capsular Tension Ring made of ultraviolet light absorbing polymethylmethacrylate- SAFE) [facility]. 01/2016 GALLBLADDER [facility] Hx Anesthesia Reactions: No Infectious Disease History: No Infectious Disease History: Reports: Hx Shingles Denies: Hx Clostridium Difficile, Hx Hepatitis, Hx Human Immunodeficiency Virus (HIV), Hx of Known/Suspected MRSA, Hx Tuberculosis, Hx Known/Suspected VRE , Hx Known/Suspected VRSA, History Other Infectious Disease, Traveled Outside the [place] in Last 30 Days - Family History Known Family History: Positive: Cardiac Disease, Other Negative: Blood Disorder Family History: Anxiety, IBS, gastroenteritis issues - mother - Social History Alcohol Use: None Hx Substance Use: No Substance Use Type: Reports: None Hx Tobacco Use: No Smoking Status (MU): Never Smoked Tobacco Have You Smoked in the Last Year: No Review of Systems Negative: Fever Negative: Blurred Vision Negative: Sore Throat, Ear Ache Positive: Palpitations, Chest Pain Positive: Shortness Of Breath Negative: Abdominal Pain Positive: no symptoms reported Negative: Myalgia, Edema Negative: Rash Negative: Headache Positive: Anxious All Other Systems Reviewed And Are Negative: No Physical Exam - Summary Physical Exam Summary: Appearance: Alert, conversive, nontoxic appearing Skin: Warm, dry, no mottling, no rashes, no contusions HEENT: EOMI, PERRL, moist mucous membranes Neck: No masses on the neck, supple Respiratory: Clear to auscultation, breath sounds present, no rales, no rhonchi , no wheezes Cardiovascular: Regular rhythm with tacycardia, pulses are symmetrical in both lower and upper extremities Abdomen: Soft, non-tender Bowel Sounds: Present Musculoskeletal: No CVA tenderness, no obvious deformity, moving all extremities in a grossly normal manner Neurological: A&Ox3, CN II-XII Intact, moving all extremities symmetrically Psychiatric: Normal affect and mood Triage Information Reviewed: Yes Vital Signs On Initial Exam: Initial Vitals Temp Pulse Resp BP Pulse Ox 97.5 F 146 16 123/80 98 09/18/17 16:12 09/18/17 16:12 09/18/17 16:12 09/18/17 16:12 09/18/17 16:12 Vital Signs Reviewed: Yes Diagnostics - Vital Signs Vital Signs Temp Pulse Resp BP Pulse Ox 09/18/17 16:12 97.5 F 146 16 123/80 98 - Laboratory Lab Results: Lab Results 09/18/17 09/18/17 09/18/17 Range/Units 16:45 16:45 16:45 WBC 6.0 (3.5-10.8) 10^3/ul RBC 4.64 (4.0-5.4) 10^6/ul Hgb 14.6 (14.0-18.0) g/dl Hct 42 (42-52) % MCV 91 (80-94) fL MCH 31 (27-31) pg MCHC 34 (31-36) g/dl RDW 13 (10.5-15) % Plt Count 202 (150-450) 10^3/ul MPV 7 L (7.4-10.4) um3 Neut % (Auto) 68.7 (38-83) % Lymph % (Auto) 18.4 L (25-47) % [place] % (Auto) 11.7 H (1-9) % Eos % (Auto) 0.8 (0-6) % Baso % (Auto) 0.4 (0-2) % Absolute Neuts (auto) 4.1 (1.5-7.7) 10^3/ul Absolute Lymphs (auto) 1.1 (1.0-4.8) 10^3/ul Absolute Monos (auto) 0.7 (0-0.8) 10^3/ul Absolute Eos (auto) 0 (0-0.6) 10^3/ul Absolute Basos (auto) 0 (0-0.2) 10^3/ul Absolute Nucleated RBC 0 10^3/ul Nucleated RBC % 0 Sodium 136 (133-145) mmol/L Potassium 3.8 (3.5-5.0) mmol/L Chloride 104 (101-111) mmol/L Carbon Dioxide 25 (22-32) mmol/L Anion Gap 7 (2-11) mmol/L BUN 22 (6-24) mg/dL Creatinine 0.87 (0.67-1.17) mg/dL Est GFR ( Amer) 113.3 (>60) Est GFR (Non-Af Amer) 88.1 (>60) BUN/Creatinine Ratio 25.3 H (8-20) Glucose 95 (70-100) mg/dL Calcium 9.4 (8.6-10.3) mg/dL Magnesium 2.1 (1.9-2.7) mg/dL Total Bilirubin 0.40 (0.2-1.0) mg/dL AST 15 (13-39) U/L ALT 12 (7-52) U/L Alkaline Phosphatase 55 (34-104) U/L Troponin I 0.00 (<0.04) ng/mL B-Natriuretic Peptide 71 ( - 100) pg/mL Total Protein 6.7 (6.4-8.9) g/dL Albumin 4.1 (3.2-5.2) g/dL Globulin 2.6 (2-4) g/dL Albumin/Globulin Ratio 1.6 (1-3) TSH 1.63 (0.34-5.60) mcIU/mL 09/18/17 Range/Units 17:50 WBC (3.5-10.8) 10^3/ul RBC (4.0-5.4) 10^6/ul Hgb (14.0-18.0) g/dl Hct (42-52) % MCV (80-94) fL MCH (27-31) pg MCHC (31-36) g/dl RDW (10.5-15) % Plt Count (150-450) 10^3/ul MPV (7.4-10.4) um3 Neut % (Auto) (38-83) % Lymph % (Auto) (25-47) % [place] % (Auto) (1-9) % Eos % (Auto) (0-6) % Baso % (Auto) (0-2) % Absolute Neuts (auto) (1.5-7.7) 10^3/ul Absolute Lymphs (auto) (1.0-4.8) 10^3/ul Absolute Monos (auto) (0-0.8) 10^3/ul Absolute Eos (auto) (0-0.6) 10^3/ul Absolute Basos (auto) (0-0.2) 10^3/ul Absolute Nucleated RBC 10^3/ul Nucleated RBC % Sodium (133-145) mmol/L Potassium (3.5-5.0) mmol/L Chloride (101-111) mmol/L Carbon Dioxide (22-32) mmol/L Anion Gap (2-11) mmol/L BUN (6-24) mg/dL Creatinine (0.67-1.17) mg/dL Est GFR ( Amer) (>60) Est GFR (Non-Af Amer) (>60) BUN/Creatinine Ratio (8-20) Glucose (70-100) mg/dL Calcium (8.6-10.3) mg/dL Magnesium (1.9-2.7) mg/dL Total Bilirubin (0.2-1.0) mg/dL AST (13-39) U/L ALT (7-52) U/L Alkaline Phosphatase (34-104) U/L Troponin I 0.01 (<0.04) ng/mL B-Natriuretic Peptide ( - 100) pg/mL Total Protein (6.4-8.9) g/dL Albumin (3.2-5.2) g/dL Globulin (2-4) g/dL Albumin/Globulin Ratio (1-3) TSH (0.34-5.60) mcIU/mL Result Diagrams: 09/18/17 16:45 09/18/17 16:45 Lab Statement: Any lab studies that have been ordered have been reviewed, and results considered in the medical decision making process. - Radiology CXR Radiology Interpretation Completed By: Radiologist - No radiographic evidence for acute cardiopulmonary abnormality on this portable chest x-ray. ED Physician has reviewed this report. - EKG 16:51 Cardiac Rate: NL EKG Rhythm: Atrial Flutter - at 71 BPM EKG Interpretation: nml QRS QTc, slight ST elevation in 2,3 aVF no reciprical changes no AMI 17:29 Cardiac Rate: NL EKG Rhythm: Sinus Rhythm - at 67 BPM EKG Interpretation: nml QRS QTc, nml axis Re-Evaluation - Re-Evaluation 1 Re-Evaluation Time: 16:50 Change: Improved - Patients heart rate is around 80 BPM 2 Re-Evaluation Time: 17:17 Change: Improved - Pt was updated. Pt has no CP, his HR is now in the 70s. Pt appears to be in sinus on the monitor. A third EKG will be ordered. 3 Re-Evaluation Time: 18:10 Change: Unchanged - Patient is still in sinus, troponin is zero. Course/Dx - Course Course Of Treatment: At 17:10, I spoke with Dr. Benton, crate icer, we reviewed EKG with mild ST elevation in inferior leads, he stated this was normal. I spoke with lab at 17:40 to run troponin, but is still not completed at 18:00. At 18:00 trponin is 0.0. At 18:[address] Chiang we reviewed case and he recomended Cardizem (30mg x2 per day) and to follow up with Dr. Mason on 09/21/17 and to avoid triggers/stimulants such as caffiene or alcohol - Diagnoses Provider Diagnoses: Atrial flutter - Critical Care Time Critical Care Time: 30-74 min Discharge - Discharge Plan Condition: Stable Disposition: HOME Prescriptions: Diltiazem TAB* [Cardizem 30 MG Tab*] 30 mg PO BID #14 tab Patient Education Materials: Atrial Flutter (ED) Referrals: Isreal Rascon MD [Primary Care Provider] - Sterling Mason DO [Medical Doctor] - Additional Instructions: Avoid any caffeine, alcohol, or any stimulants. they may cause you to go back into atrial flutter. Take cardizem 30mg twice a day until otherwise instructed by Dr. Mason. return if worse or any new symptoms. The documentation as recorded by the Tone perkins Julia accurately reflects the service I personally performed and the decisions made by me, Geno Murillo MD.
== END 2017-09-18 18:56 | disposition home or self-care (01) ==
LOC: ED 16:10
DX: I48.92 Unspecified atrial flutter (principal); R00.2 Palpitations; R07.9 Chest pain, unspecified; R06.02 Shortness of breath
CPT/HCPCS: 36415; 71045; 80053; 83735; 83880; 84443; 84484; 85025; 93005; 99283; A9270-GY

== ENCOUNTER 2019-07-27 06:19 | Day surgery (SDC) | payer OTHER ==
[~2019-07-27 06:19] MED LIST: Buffered Lidocaine 1% SYRIN* 1 ML/SYRINGE INTRADERM ONE; Lactated Ringers 1000 ML Bag* 1,000 ML IV SCH
[2019-07-27] MEDS ORDERED: ceFAZolin 2 GM in NS PREMIX(*) 2 GM/100 ML BAG IVPB ONE (06:34)
[2019-07-27] MEDS ORDERED: Lidocaine 1% INJ* 10 MG/ML 30 ML SDV ONE (07:10)
[2019-07-27] MEDS ORDERED: Bupivacaine 0.5% SDV PF* 30ML VIAL ONE (07:10)
[2019-07-27] MEDS ORDERED: Bupivacaine 0.25% SDV* 30 ML ONE (07:11)
[2019-07-27] MEDS ORDERED: Lidocaine 2% PF * 5 ML VIAL ONE (07:18)
[2019-07-27] MEDS ORDERED: Propofol* 10 MG/ML 20 ML BTL ONE (07:18)
[2019-07-27] MEDS ORDERED: fentaNYL* 50 MCG/ML 2 ML VIAL (100 MCG VIAL) ONE (07:19)
[2019-07-27] MEDS ORDERED: Lidocaine 1% w EPI 1:100,000* MDV 20 ML VIAL ONE (07:20)
[2019-07-27] MEDS ORDERED: Naloxone* 0.4 MG/ML 1 ML VIAL IV PRN (07:23)
[2019-07-27 09:04] VITALS: BP 113/62
--- NOTE | 2019-07-27 11:12 | OP ---
OPERATIVE NOTE: DATE OF OPERATION: 07/27/19 DATE OF : 52 SURGEON: Dr. Heladio Finley. SECURITY SHIFT MANAGER: BERNARD Nobles. ANESTHESIA: Monitored anesthesia care, local anesthesia. PRE-OP DIAGNOSIS: Right ring finger trigger finger, stenosing tenosynovitis. POST-OP DIAGNOSIS: Right ring finger, trigger finger, stenosing tenosynovitis. OPERATIVE PROCEDURE: Right open trigger finger release, ring finger. ANTIBIOTICS: Ancef 2 g IV. IV FLUIDS: See anesthesia note. [id number] TIME: 13 minutes. TOURNIQUET TIME: 15 minutes at 250 mmHg, right upper arm tourniquet. SPECIMEN: None. IMPLANTS: None. COMPLICATIONS: None. ESTIMATED BLOOD LOSS: Minimal. INDICATIONS: The patient is a 68-year-old man with a history of trigger finger, right ring finger, t hat failed to respond to nonoperative treatment. The patient opted for surgery. Discussed risks and potential complications. DESCRIPTION OF PROCEDURE: In preoperative holding, the patient signed a written consent. Operative extremity was marked in the preoperative holding. The patient was taken back to the operating room, kept supine on the stretcher. Hand table applied. The patient sedated a little bit. Mini time-out performed. Lidocaine 1% with epinephrine placed just proximal to the planned surgical incision, 5 cc. Right upper extremity was prepped and draped. Surgical time-out performed. Esmarch was applied and t he tourniquet was elevated to 250 mmHg. Skin incision made, standard, longitudinal. Dissected down with scissors to the flexor tendon. Retractors placed. Digital nerve, neurovascular bundles not in f ield. A1 jessica released. Small amount of A2 jessica released distally and A0 jessica released proxim ally. Flexor tendons were undamaged. Flexor tendons were retracted from the wound. Encouraged the patient to try to stimulate triggering and he was unable. Irrigation of wound. Closure of skin with horizontal mattress stitches using nylon 4-0 suture. Sterile dressing applied. The patient awakened and brought to the PACU. DISPOSITION: Wound care instructions provided. The patient to follow up in the clinic approximately 10 days postoperatively. Tramadol or NSAIDs as needed for pain control. [id number]/[facility] #: [id number]
== END 2019-07-27 08:41 | disposition home or self-care (01) ==
LOC: OREAST 06:19
PROVIDERS: ATTEND Orthopaedic Surgery
DX: M65.341 Trigger finger, right ring finger (principal); Z86.711 Personal history of pulmonary embolism; Z79.01 Long term (current) use of anticoagulants; F41.8 Other specified anxiety disorders
CPT/HCPCS: J0690; J2704; J3010; J3490